=== PATIENT | male | born 1995 | race Two or more races ===

== ENCOUNTER 2018-05-13 21:22 | Emergency (ER) | payer OTHER ==
[~2018-05-13] VITALS: Ht 165.1 cm; Wt 81.6 kg
--- NOTE | 2018-05-13 21:39 | NUR ---
DR KUMAR INTO [facility]
[2018-05-13] MEDS ORDERED: SILVER SULFADIAZINE 1% CREAM 50 GM TP ONE (21:45)
[2018-05-13] MEDS ORDERED: TRAMADOL HCL 50 MG TABLET PO ONE (21:45)
[2018-05-13] MEDS ORDERED: SILVER SULFADIAZINE 1% CREAM 25 GM TUBE TP ONE (21:49)
[2018-05-13] MEDS ORDERED: TRAMADOL HCL 50 MG TABLET ONE (21:51)
--- NOTE | 2018-05-13 22:00 | NUR ---
Patient discharged to home in stable conditon WITH MOTHER TAKING PATIENT HOME. Written and verbal after care instructions given. Patient verbalizes understanding of instructions. WALKED OUT OF ER WITH NO DISTRESS NOTED
[2018-05-13 22:03] VITALS: BP 130/90
== END 2018-05-13 22:03 | disposition home or self-care (01) ==
LOC: ER 21:24
DX: T23.271A Burn of second degree of right wrist, initial encounter (principal); X10.2XXA Contact with fats and cooking oils, initial encounter; Y93.89 Activity, other specified; Y92.89 Other specified places as the place of occurrence of the external cause; Y99.8 Other external cause status
CPT/HCPCS: 16020; A4217; A4663

== ENCOUNTER 2021-01-18 18:04 | Emergency (ER) | payer OTHER ==
[~2021-01-18] VITALS: Ht 167.6 cm; Wt 81.6 kg
--- NOTE | 2021-01-18 18:56 | NUR ---
[email or web address], medical screening exam in progress
[2021-01-18] MEDS ORDERED: TDAP DIPH,PERTUSS,TET VAC/PF 0.5 ML DISP.SYRIN IM ONE ×2 (19:45→19:49)
--- NOTE | 2021-01-18 20:06 | NUR ---
Assist ED MD bedside. Left index tip avulsion nail absent ,weeping blood. MD apply Surgicel,taped. Patient signed T dap consent, given. T dap 0.[address] Dressing as directed. Mild discomfort noted. Instructed keep left hand elevated above heart. Return to ED in 24 hours for evaluation.
--- NOTE | 2021-01-18 20:31 | NUR ---
Assist ED MD bedside Left index finger avulsion nail absent,weeping blood. MD apply surgicel,tape. Elastoblast tape. Consented for D tap RD 0.5 ml IM given.
--- NOTE | 2021-01-18 20:38 | NUR ---
Patient discharged ambulatory with friend returned within minutes with blood saturation dressing.
--- NOTE | 2021-01-18 20:40 | NUR ---
Patient returned to room 3 a. MD bedside. Dressing evaluated by MD,left intact,patient positioned with left hand elevated above heart, area without dressing cleaned with NS,gauze,dried.
--- NOTE | 2021-01-18 21:03 | NUR ---
Comfort measures x 2 colld compress applied,LUE elevated above heart.
[2021-01-18] MEDS ORDERED: ACETAMINOPHEN 325 MG TABLET PO ONE (21:30)
[2021-01-18] MEDS ORDERED: ACETAMINOPHEN 325 MG TABLET ONE (21:42)
--- NOTE | 2021-01-18 21:53 | NUR ---
Medicated for comfort. BP 130.80,P 83. Dressing reinforced,coban .Reviewed discharge instructions patient able to verbalize instructions ,has written instructions.Ambulatory to private auto.
[2021-01-18 22:00] VITALS: BP 121/74
== END 2021-01-18 22:01 | disposition home or self-care (01) ==
LOC: ER 18:11
DX: S61.211A Laceration without foreign body of left index finger without damage to nail, initial encounter (principal); W26.0XXA Contact with knife, initial encounter; Y93.G1 Activity, food preparation and clean up; Y92.511 Restaurant or cafe as the place of occurrence of the external cause; Y99.0 Civilian activity done for income or pay
CPT/HCPCS: 90715; A4663

== ENCOUNTER 2021-01-19 18:45 | Emergency (ER) | payer OTHER ==
[~2021-01-19] VITALS: Ht 165.1 cm; Wt 81.6 kg
--- NOTE | 2021-01-19 19:07 | NUR ---
in room to do MSE.
[2021-01-19 19:45] VITALS: BP 122/78
--- NOTE | 2021-01-19 19:45 | NUR ---
Patient discharged to home in stable condition. Written and verbal after care instructions given. Patient verbalizes understanding of instructions. Stressed follow up or return to ER for worsening s/s. Patient ambulates with steady gait, V/S stable, wound cleaned and dressed, left with all personal belongings.
== END 2021-01-19 19:45 | disposition home or self-care (01) ==
LOC: ER 18:45
DX: S61.311D Laceration without foreign body of left index finger with damage to nail, subsequent encounter (principal); W26.0XXD Contact with knife, subsequent encounter
CPT/HCPCS: A4663